=== PATIENT | female | born 1940 | race Two or more races ===

== ENCOUNTER 2019-10-08 04:09 | Inpatient (IN) | payer MEDICARE, OTHER ==
[~2019-10-08] VITALS: Ht 160 cm; Wt 108.0 kg
--- NOTE | 2019-10-08 04:20 | NUR ---
CLOTH COVERED HELMET PULLERSENIOR TAX MANAGER NOTES PATIENT IS A DIRECT ADMIT FROM [place] FOR NEW ONSET OF AFIB, HYPOTENSION AND WEAKNESS. PATIENT CAME TO UNIT VIA GURNEY ACCOMPANIED BY [facility] STAFF. PATIENT IS ALERT, ORIENTED X 4, TRINIDADIAN/ HAITIAN SPEAKING, SIGNAL SYSTEM TESTING MAINTAINER EVANS HELPED WITH TRANSLATION. BREATHING EVEN AND UNLABORED. NOT IN ANY DISTRESS, ON ROOM AIR. PATIENT CAN AMBULATE WITH A WALKER WITH STANDBY ASSIST. PATIENT DENIES SMOKING, AND DRUG USE BUT STATES SHE DRINKS OCCASIONALLY. SKIN ASSESSMENT DONE- SKIN IS INTACT. MRSA SWAB TO BOTH NARES DONE. TELE MONITOR IN PLACE- SINUS RHYTHM 98. IV ACCESS ON L HAND G#22 INTACT AND PATENT. ORIENTED WITH CALL LIGHT- PLACED WITHIN EASY REACH. BED IN LOW, LOCKED POSITION, BED ALARM ON. WILL CONTINUE TO MONITOR ACCORDINGLY
[2019-10-08] MEDS ORDERED: IV 1/2NS 1000 ML 1,000 ML IV PRN (04:35)
[2019-10-08 04:40] VITALS: BP 114/75
[2019-10-08] MEDS ORDERED: ZOLPIDEM TARTRATE 5 MG TABLET PO PRN (05:00)
[2019-10-08] MEDS ORDERED: MAGNESIUM HYDROXIDE 30 ML UDC PO PRN (05:00)
[2019-10-08] MEDS ORDERED: ONDANSETRON HCL/PF 4 MG/2 ML VIAL IVP PRN (05:00)
[2019-10-08] MEDS ORDERED: MORPHINE SULFATE INJ 2 MG/ML DISP.SYRIN IV PRN (05:00)
[2019-10-08] MEDS ORDERED: HYDROCODONE/APAP 5/325MG 1 EACH TABLET PO PRN (05:00)
[2019-10-08] MEDS ORDERED: Z GUARD REMEDY 2 OZ OINT TP PRN (05:00)
[2019-10-08] MEDS ORDERED: ACETAMINOPHEN 325 MG TABLET PO PRN (05:00)
[2019-10-08] MEDS ORDERED: MAG HYDROX/AL HYDROX/SIMETH 30 ML UDC PO PRN (05:00)
[2019-10-08 06:25] LABS: BASOPHILS % (AUTO) 0.4 % (0.0-2.0); EOSINOPHILS % (AUTO) 2.9 % (0.0-6.0); HEMATOCRIT 35 % (33-45); HEMOGLOBIN 11.3 g/dL (11.5-14.8); LYMPHOCYTES % (AUTO) 20.5 % (20.0-44.0); MEAN CORPUSCULAR HGB CONC 32 g/dl (31.0-36.0); MEAN CORPUSCULAR VOLUME 89 fL (82-100); MONOCYTES # (AUTO) 0.9 /CMM (0.1-1.30); MONOCYTES % (AUTO) 9.1 % (2.0-12.0); NEUTROPHILS # (AUTO) 6.6 /CMM (1.8-8.9); NEUTROPHILS % (AUTO) 67.1 % (43.0-81.0); PLATELET COUNT (AUTO) 300 /CMM (150-450); RED BLOOD CELL COUNT(AUTO) 3.99 MIL/uL (4.0-5.2); WHITE BLOOD COUNT (AUTO) 9.9 K/uL (4.3-11.0)
--- NOTE | 2019-10-08 06:26 | NUR ---
CAD INTERN CLOSING NOTES PATIENT STILL SLEEPING IN BED,EASILY AROUSABLE. BREATHING EVEN AND UNLABORED. NOT IN ANY DISTRESS. PERIPHERAL IV INFUSING AT 75ML/HR. TELE MONITOR IN PLACE- SINUS RHYTHM 89. NO COMPLAINTS AT THIS TIME. ALL NEEDS ATTENDED TO. SAFETY MEASURES WITHIN REACH. CALL LIGHT WITHIN EASY REACH. BED IN LOW, LOCKED POSITION, WITH ALARM ON. WILL ENDORSE HERIBERTO TO ONCOMING RN
[2019-10-08 06:35] LABS: ALANINE AMINOTRANSFERASE 8 U/L (12-78); ALBUMIN 2.8 g/dL (3.4-5.0); ALKALINE PHOSPHATASE 60 U/L (46-116); ASPARTATE AMINOTRANSFERASE 16 U/L (15-37); BILIRUBIN,DIRECT 0.1 mg/dL (0.0-0.2); BILIRUBIN,TOTAL 0.3 mg/dL (0.2-1.0); CALCIUM, SERUM 8.6 mg/dL (8.5-10.1); CARBON DIOXIDE 29 mmol/L (21-32); CHLORIDE 105 mmol/L (98-107); CREATININE 1.8 mg/dL (0.6-1.3); GLUCOSE 101 mg/dL (74-106); MAGNESIUM 1.6 mg/dL (1.8-2.4); POTASSIUM 3.2 mmol/L (3.5-5.1); SODIUM SERUM 140 mmol/L (136-145); TOTAL PROTEIN, SERUM 6.6 g/dL (6.4-8.2); UREA NITROGEN, BLOOD 39 mg/dL (7-18)
[2019-10-08 06:43] LABS: CHOLESTEROL 202 mg/dL (<200); HDL CHOLESTEROL 45 mg/dL (40-60); LDL 131 mg/dL (0-99); THYROID STIMULATING HORMONE 3.453 uIU/mL (0.358-3.74); TRIGLYCERIDES 125 mg/dL (30-150)
[2019-10-08] MEDS: PANTOPRAZOLE 40 MG TABLET.DR PO SCH (07:30)
[2019-10-08 08:00] VITALS: BP 118/61
[2019-10-08] MEDS ORDERED: VALS1TAB54 PO (08:17)
[2019-10-08] MEDS ORDERED: METO25TA20 PO (08:17)
[2019-10-08] MEDS ORDERED: LISI10TA5 PO (08:17)
[2019-10-08 08:39] LABS: IRON, SERUM 42 ug/dl (50-175); TOTAL IRON BINDING CAPACITY 265 ug/dl (250-450)
[2019-10-08 08:51] LABS: FERRITIN 37 ng/mL (8-388)
[2019-10-08] MEDS ORDERED: ASPIRIN EC 81 MG TABLET.DR PO SCH (09:00)
[2019-10-08] MEDS: POTASSIUM CHLORIDE 20 MEQ TAB.PRT.SR PO SCH ×3 (09:07→11:49)
[2019-10-08] MEDS: DILTIAZEM HCL CD 240 MG PO SCH (09:07)
[2019-10-08] MEDS: Magnesium 1GM/D5W 100ML PREMIX 100 ML IV SCH ×2 (09:08→10:59)
[2019-10-08] MEDS: APIXABAN 2.5 MG TABLET PO SCH ×2 (11:51→17:10)
[2019-10-08] MEDS ORDERED: LEVOFLOXACIN 750 MG /D5W 150ML 750 MG in PREMIX 1 EA IV SCH (15:00)
[2019-10-08 16:00] VITALS: BP 122/73
[2019-10-08 16:49] LABS: APPEARANCE,URINE SL CLOUDY (CLEAR); BILIRUBIN,URINE NEGATIVE (NEGATIVE); BLOOD, URINE NEGATIVE Ery/uL (NEGATIVE); COLOR,URINE YELLOW (YELLOW); KETONES,URINE NEGATIVE (NEGATIVE); LEUKOCYTE ESTERASE ,URINE NEGATIVE (NEGATIVE); NITRITE, URINE NEGATIVE (NEGATIVE); PH,URINE 5.5 (5.0-8.0); PROTEIN,URINE NEGATIVE (NEGATIVE); UGLUCOSE NEGATIVE (NEGATIVE); UROBILINOGEN,URINE 0.2 EU/dL (0.2)
--- NOTE | 2019-10-08 18:43 | NUR ---
PATIENT AWAKE A/O X4 WITH FAMILY MEMBERS AT BED SIDE. DENIES ANY PAIN, SOB, DISCOMFORT. ON TELEMETRY CONTROLLED A-FIB 82-84.BREATHING UNLABORED AND EVEN ON ROOM AIR. ALL NEEDS ATTENDED. PATIENT KEPT COMFORTABLE. SAFETY PRECAUTIONS IN PLACE. CALL LIGHT WITHIN REACH. WILL ENDORSE TO NEXT SHIFT FOR HERIBERTO.
--- NOTE | 2019-10-08 19:15 | NUR ---
CHANGED OF SHIFT REPORT Patient in bed, awake. A Fib controlled in the Tele monitor. Tolerating RA, denies pain. A/O x4 instructed to use call light for assistance, verbalized understanding.
[2019-10-08] MEDS: ALBUTEROL HALF STRENGTH 1.25 MG/3 ML VIAL.NEB NEB SCH (19:24)
[2019-10-08 20:00] VITALS: BP 131/49
[2019-10-08] MEDS: IV NS 0.9% 1,000 ML IV PRN (20:41)
[2019-10-08 21:07] VITALS: BP 131/49
[2019-10-09] VITALS: BP 114/54
[2019-10-09 04:00] VITALS: BP 119/60
[2019-10-09] MEDS: IV NS 0.9% 1,000 ML IV PRN (04:29)
[2019-10-09 06:27] LABS: BASOPHILS # (AUTO) 0.1 /CMM (0.0-0.2); BASOPHILS % (AUTO) 0.6 % (0.0-2.0); EOSINOPHILS % (AUTO) 3.7 % (0.0-6.0); HEMATOCRIT 32 % (33-45); HEMOGLOBIN 10.3 g/dL (11.5-14.8); LYMPHOCYTES # (AUTO) 1.5 /CMM (0.8-4.8); LYMPHOCYTES % (AUTO) 18.8 % (20.0-44.0); MEAN CORPUSCULAR HGB CONC 32 g/dl (31.0-36.0); MEAN CORPUSCULAR VOLUME 89 fL (82-100); MONOCYTES # (AUTO) 0.9 /CMM (0.1-1.30); MONOCYTES % (AUTO) 10.6 % (2.0-12.0); NEUTROPHILS # (AUTO) 5.4 /CMM (1.8-8.9); NEUTROPHILS % (AUTO) 66.3 % (43.0-81.0); PLATELET COUNT (AUTO) 278 /CMM (150-450); RED BLOOD CELL COUNT(AUTO) 3.59 MIL/uL (4.0-5.2); WHITE BLOOD COUNT (AUTO) 8.1 K/uL (4.3-11.0)
--- NOTE | 2019-10-09 06:31 | NUR ---
END OF SHIFT REPORT Patient in bed, stable oxygen saturation on RA. AFib controlled in the Tele monitor. IVF infusing, IV antibiotic as scheduled. Assisted to the BSC, denies pain. Slept well, no c/o chest pain. Plan Cardioversion after 3 weeks of anticoagulation, Cardio following. Fall precaution maintained.
[2019-10-09 06:48] LABS: ALANINE AMINOTRANSFERASE 8 U/L (12-78); ALBUMIN 2.5 g/dL (3.4-5.0); ALKALINE PHOSPHATASE 53 U/L (46-116); ASPARTATE AMINOTRANSFERASE 15 U/L (15-37); B-TYPE NATRIURETIC PEPTIDE 2282 PG/ML (0-125); BILIRUBIN,TOTAL 0.4 mg/dL (0.2-1.0); CALCIUM, SERUM 8.5 mg/dL (8.5-10.1); CARBON DIOXIDE 25 mmol/L (21-32); CHLORIDE 108 mmol/L (98-107); CREATININE 1.3 mg/dL (0.6-1.3); GLUCOSE 104 mg/dL (74-106); PHOSPHORUS 3.2 mg/dL (2.5-4.9); POTASSIUM 4.3 mmol/L (3.5-5.1); SODIUM SERUM 141 mmol/L (136-145); TOTAL PROTEIN, SERUM 6.2 g/dL (6.4-8.2); UREA NITROGEN, BLOOD 27 mg/dL (7-18)
[2019-10-09] MEDS: ALBUTEROL HALF STRENGTH 1.25 MG/3 ML VIAL.NEB NEB SCH ×3 (07:57→14:57)
[2019-10-09 08:00] VITALS: BP 139/88
[2019-10-09] MEDS: PANTOPRAZOLE 40 MG TABLET.DR PO SCH (08:20)
[2019-10-09] MEDS: DILTIAZEM HCL CD 240 MG PO SCH (08:20)
[2019-10-09] MEDS: APIXABAN 2.5 MG TABLET PO SCH (08:23)
[2019-10-09 08:55] VITALS: BP 139/88
[2019-10-09] MEDS ORDERED: METOPROLOL TARTRATE 25 MG TABLET PO SCH (09:00)
[2019-10-09] MEDS ORDERED: VALSARTAN 80 MG TABLET PO SCH (09:00)
[2019-10-09] MEDS ORDERED: Medication Not On Formulary EA (Valsartan/Hydrochlorothiazide (Diovan Hct 320-25 Mg Tabl PO SCH (09:00)
[2019-10-09] MEDS ORDERED: HYDROCHLOROTHIAZIDE 25 MG TABLET PO SCH (09:00)
[2019-10-09] MEDS ORDERED: LISINOPRIL (10MG) 10 MG TABLET PO SCH (09:00)
[2019-10-09] MEDS ORDERED: APIX2.5T PO (14:19)
[2019-10-09] MEDS ORDERED: DILT-3 PO (14:19)
[2019-10-09] MEDS ORDERED: AZIT500T2 PO (14:21)
--- NOTE | 2019-10-09 15:19 | NUR ---
MS/RN PRESCRIPTION SENT TO PHARMACY PRESCRIPTION FOR ELOQUIS SENT TO PHARMACY BY DR. ESTES.
[2019-10-09 16:00] VITALS: BP 119/54
--- NOTE | 2019-10-09 16:10 | NUR ---
MS/CHEMICAL EQUIPMENT SALES ENGINEER PATIENT IS MEDICALLY STABLE FOR DISCHARGE, A/O X4, SHOWING NO SIGNS OF ACUTE DISTRESS OR SOB. VITAL SIGNS WNL. DC INSTRUCTIONS PROVIDED, PATIENT AND FAMILY VERBALIZES UNDERSTANDING. IV REMOVED. ID BAND REMOVED. SKIN ASSESSED, NO NEW SKIN BREAKDOWN PRIOR TO DISCHARGE. PATIENT HAS ALL BELONGINGS WITH THEM. PATIENT KEPT CLEAN, DRY AND COMFORTABLE, ALL PATIENT NEEDS HAVE BEEN MET. MD IS AWARE OF DISCHARGE.
--- NOTE | 2019-10-09 16:22 | NUR ---
MS/ RN PATIENT LEFT UNIT PATIENT LEFT UNIT VIA WHEELCHAIR ACCOMPANIED BY DAUGHTER
== END 2019-10-09 16:15 | disposition home or self-care (01) | DRG 193 ==
LOC: TELE 04:09 → MED 10-09 08:53
PROVIDERS: ADMIT Hospitalist; ATTEND Hospitalist
DX: J15.9 Unspecified bacterial pneumonia (principal); N17.0 Acute kidney failure with tubular necrosis; E44.0 Moderate protein-calorie malnutrition; Z68.41 Body mass index [BMI] 40.0-44.9, adult; I48.91 Unspecified atrial fibrillation; E87.6 Hypokalemia; E83.42 Hypomagnesemia; E78.5 Hyperlipidemia, unspecified; E66.01 Morbid (severe) obesity due to excess calories; I13.10 Hypertensive heart and chronic kidney disease without heart failure, with stage 1 through stage 4 chronic kidney disease, or unspecified chronic kidney disease; N18.9 Chronic kidney disease, unspecified
CPT/HCPCS: 36415; 71045-TC; 76770-TC; 80048-TC; 80053-TC; 80061-TC; 80076-TC; 81000-TC; 82728-TC; 83540-TC; 83735-TC; 83880; 84100-TC; 84443-TC; 84484-TC; 85025-TC; 87081-TC; 93307-TC; 97116-TC; 97530-TC; A4216; G0378; J1956; J3475; J3490; J7030